=== PATIENT | female | born 1960 | race Caucasian/White ===

== ENCOUNTER → 2023-07-11 11:34 | Outpatient (CLI) | payer OTHER, SELFPAY ==
[2023-07-15 12:33] LABS: Iron 127 ug/dL (37-170)
[2023-07-15 12:34] LABS: Alanine Aminotransferase 168 U/L (12-78); Anion Gap 15.2 mEq/L (5-15); Aspartate Amino Transferase 162 U/L (14-36); Bilirubin,Total 0.4 mg/dl (0.2-1.3); Blood Urea Nitrogen 13 mg/dl (7-17); Calcium 9.4 mg/dl (8.4-10.2); Carbon Dioxide 22 mmol/L (22.0-30.0); Chloride 103 mmol/L (98-107); Estimated Glomerular Filt Rate 84 ml/min (>60); Folate > 20.00 ng/mL; GFR (African American) 102 ML/MIN (>60); Glucose 123 mg/dl (74-100); Potassium 4.2 mmoL/L (3.5-5.1); Sodium 136 mmol/L (136-145)
[2023-07-15 12:35] LABS: Albumin Level 4.3 g/dl (3.5-5.0); Albumin/Globulin Ratio 1.2 (1.1-1.8); Alkaline Phosphatase 194 U/L (38-126); Chol/HDL Ratio 2.2 (1-3.5); Cholesterol 324 mg/dl (140-200); Direct LDL Cholesterol 140.63 mg/dL (100-129); Globulin 3.6 g/dL (1.3-3.2); HDL Cholesterol 146 mg/dl (40-60); Total Protein,Serum 7.9 g/dl (6.3-8.2); Triglycerides 228 mg/dl (30-150); VLDL Cholesterol 46 mg/dL (0-40)
[2023-07-15 12:37] LABS: Amphetamine/Metha Screen,Urine Negative ng/ml (<1000); Barbiturates Screen,Urine Negative ng/ml (<200); Cannabinoid Screen,Urine Negative ng/ml (<50); Cocaine Screen,Urine Negative ng/ml (<300); Methadone Screen,Urine Negative ng/ml (<300); Opiate Screen,Urine Negative ng/ml (<300); Phencyclidine Screen,Urine Negative ng/ml (<25)
[2023-07-15 12:39] LABS: Eosinophils # 0.2 K/mm3 (0.0-0.4); Eosinophils % 3.8 % (0.1-12.0); Hematocrit 44.3 % (37.0-47.0); Hemoglobin 14.8 g/dL (12.2-16.2); Lymphocytes # 2.5 K/mm3 (0.7-4.5); Mean Corpuscular HGB Conc 33.3 g/dL (31.8-35.4); Mean Corpuscular Hemoglobin 32.4 pg (27.0-31.2); Mean Corpuscular Volume 97.4 fl (81-99); Mean Platelet Volume 10.2 fl (7.4-10.4); Monocytes # 0.3 K/mm3 (0.1-1.0); Monocytes % 6.3 % (1.7-9.3); Neutrophils # 3.9 K/mm3 (1.8-7.8); Neutrophils % 63.4 % (37.0-80.0); Platelet Count 215 K/mm3 (142-424); Red Blood Count 4.55 M/mm3 (4.20-5.40); Red Cell Distribution Width 14.5 % (11.5-17.5); White Blood Count 3.9 K/mm3 (4.8-10.8)
[2023-07-15 13:03] LABS: C-Reactive Protein 7.8 mg/L (0-4)
[2023-07-15 13:14] LABS: 25-OH Vitamin D, Total 58.8 ng/mL (30-100)
[2023-07-15 13:34] LABS: Thyroid Stimulating Hormone 2.25 uIU/mL (0.465-4.68)
[2023-07-15 13:48] LABS: Vitamin B12 531 pg/mL (239-931)
[2023-07-15 14:48] LABS: Erythrocyte Sedimentation Rate 81 mm/hr (0-30)
[2023-07-16 06:16] LABS: Estradiol <5.0 pg/mL (.); FSH 56.4 mIU/mL (.); Progesterone 0.1 ng/mL (.); Prolactin 6.6 ng/mL (4.8-23.3); Triiodothyronine (T3) Total 101 ng/dL (71-180)
[2023-07-16 09:44] LABS: DHEA-Sulfate 34.8 ug/dL (20.4-186.6); LH 36.9 mIU/mL (.)
[2023-07-16 14:51] LABS: Deamidated Gliadin Abs, IgA 8 units (0-19); Deamidated Gliadin Abs, IgG 3 units (0-19); Tissue Transglutaminase IgA Ab <2 U/mL (0-3); Tissue Transglutaminase IgG Ab 4 U/mL (0-5)
[2023-07-20 00:05] LABS: Alprazolam Positive (.); Benzodiazepines Positive ng/mL (Cutoff=100); Clonazepam Negative (Cutoff=100); Flurazepam Negative (Cutoff=100); Lorazepam Negative (Cutoff=100); Midazolam Negative (Cutoff=100); Temazepam Negative (Cutoff=100); Triazolam Negative (Cutoff=100)
[2023-07-21 20:09] LABS: Testosterone, Total, LC/MS 37 ng/dL (.)
== END ==
PROVIDERS: PCP Internal Medicine; Visit Provider Internal Medicine
DX: Z78.0 Asymptomatic menopausal state (principal); R53.83 Other fatigue; R63.5 Abnormal weight gain; Z79.899 Other long term (current) drug therapy
CPT/HCPCS: 80053; 80061; 80305; 80346; 82306; 82607; 82626; 82670; 82746; 83001; 83002; 83036; 83516; 83540; 84144; 84146; 84403; 84443; 84480; 85025; 85651; 86140